=== PATIENT | female | born 1980 | race Caucasian/White ===

== ENCOUNTER 2022-02-01 22:45 | Emergency (ER) | payer OTHER, SELFPAY ==
[2022-02-01 22:47] VITALS: BP 151/101; PULSE 83; RESP 18; TEMP 37.1; O2SAT 97; BMI 27.1
--- NOTE | 2022-02-01 22:57 | HMH.EDGENADL ---
ED Disposition Clinical Impression: Urticaria Allergic reaction Qualifiers: Encounter type: initial encounter Qualified Code(s): T78.40XA - Allergy, unspecified, initial encounter Disposition: Home, Self-Care Condition on Discharge: Good Instructions: DI for Rash, DI for Hives Additional Instructions: You have been evaluated for allergic reaction. Please take daily loratadine. Benadryl as needed. Avoid the supplement that likely caused this reaction. Follow-up with your primary care doctor. Take Bactrim for breast abscess. Follow-up with your surgeon. Return to the emergency department at once for any new or worsening symptoms, difficulty breathing, worsening rash, any other concerns. Prescriptions: Sulfamethoxazole/Trimethoprim [Sulfamethoxazole-Tmp Ds Tablet*] 1 tab PO BID #14 tab Transmission Status: Pending to [facility] Referrals: Provider,Referral, [Primary Care Provider] - Time of Disposition: 23:50 - Critical Care Critical Care Time: No Attestation: On , the high probability of a clinically significant, sudden or life threatening deterioration of the following system(s) required my full and direct attention, intervention and personal management. The time I documented below is in addition to time spent performing reported procedures but includes the following listed in this critical care notation. Medical Decision Making - Medical Records Medical records reviewed: Yes: I reviewed the patient's medical records. - Jayjay Inquiry Pt receiving controlled substance: No Vital Signs: 02/01/22 22:47 Temperature 98.7 F Temperature Source Oral Pulse Rate [Apical] 83 Respiratory Rate 18 Blood Pressure [Right Arm] 151/101 H Blood Pressure Mean [Right Arm] 117 Blood Pressure Source [Right Arm] Automatic Cuff Blood Pressure Position [Right Arm] Sitting 02 Sat by Pulse Oximetry 97 Oxygen Delivery Method Room Air Orders (Tests/Meds): ED MEDICATIONS Generic Name Dose Route Start Last Admin Trade Name Freq PRN Reason Stop Dose Admin Sodium Chloride 8 ml 02/01/22 22:54 Sodium Chloride 0.9% 10ml Vial IV 03/03/22 22:53 NEEDED PRN dilute pepcid Discontinued Medications Generic Name Dose Route Start Last Admin Trade Name Freq PRN Reason Stop Dose Admin Diphenhydramine HCl 25 mg 02/01/22 22:54 02/01/22 22:59 Diphenhydramine 50mg/Ml Vial IV 02/01/22 22:55 25 mg ONCE ONE Administration Famotidine 20 mg 02/01/22 22:54 02/01/22 22:59 Famotidine 20mg/2ml Vial IV 02/01/22 22:55 20 mg ONCE ONE Administration Methylprednisolone Sodium Succinate 125 mg 02/01/22 22:54 02/01/22 22:59 Methylprednisolone Sod Succ 125mg Vial IV 02/01/22 22:55 125 mg ONCE ONE Administration Medical Decision Narrative: In summary this is a previously healthy 41-year-old female presenting to the emergency department with itching skin rash. Patient clinically stable on arrival. Hypertensive. She has obvious skin eruption. No secondary signs of anaphylaxis. Will treat with famotidine, Benadryl, steroids. On reassessment, patient feeling much better. Only site of itching is the IV site in her right antecubital fossa. Rash on chest and abdomen has resolved. No new or concerning features of anaphylaxis like throat swelling, difficulty breathing, shortness of breath, wheezing. Patient counseled to avoid taking this new supplement. Will prescribe Bactrim. Recommended she follow-up with her general surgeon about the breast abscess. There is a 2 cm x 1 cm area of erythema. No fluctuance. Do not believe that it needs incision and drainage, especially not in the emergency department. 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 Given return precautions. Stable for discharge. General Adult HPI - General Stated complaint: Allergic Reaction Time Seen by Provider: 02/01/22 22:53 Mode of Arrival: Ambulatory Source of Information: Patient Limitations: No Limitations - History of
[2022-02-02 00:05] VITALS: BP 151/104; PULSE 74; RESP 16; TEMP 37.1; O2SAT 98
== END 2022-02-02 00:10 | disposition home or self-care (01) ==
PROVIDERS: Emergency Provider Emergency Medicine
DX: L50.9 Urticaria, unspecified (principal); T78.40XA Allergy, unspecified, initial encounter; Z88.0 Allergy status to penicillin; Z88.5 Allergy status to narcotic agent; Z91.048 Other nonmedicinal substance allergy status
CPT/HCPCS: 96374; 96375; 99212; G0463

== ENCOUNTER 2022-02-11 13:49 | Emergency (ER) | payer OTHER, SELFPAY ==
[2022-02-11 14:50] VITALS: BP 133/86; PULSE 73; RESP 20; TEMP 36.8; O2SAT 97; BMI 27.1
[2022-02-11 15:13] VITALS: BP 133/86; PULSE 73; RESP 20; TEMP 36.8; O2SAT 97
--- NOTE | 2022-02-11 15:31 | HMH.EDUTC ---
[facility] [place] Disposition Clinical Impression: Periorbital cellulitis of left eye Disposition: Home, Self-Care Condition on Discharge: Good Instructions: DI for Cellulitis -- Adult Additional Instructions: Take all antibiotics as prescribed until gone. Return to [facility] or ER if condition worsens or fails to improve. Warm compresses to left eye. Prescriptions: clindamycin HCL [Clindamycin HCl] 300 mg PO TID 10 Days #30 cap Transmission Status: Pending to [facility] Lactobacillus Rhamnosus R0011 [Probiotic Digestive Care] 1 each PO DAILY 14 Days #14 cap Transmission Status: Pending to [facility] Referrals: Provider,Referral, [Primary Care Provider] - Time of Disposition: 15:46 Medical Decision Making - Jayjay Inquiry Pt receiving controlled substance: No Vital Signs: 02/11/22 14:50 02/11/22 15:13 Temperature 98.3 F 98.3 F Temperature Source Oral Pulse Rate 73 Pulse Rate [Right Brachial] 73 Respiratory Rate 20 20 Blood Pressure 133/86 Blood Pressure [Right Arm] 133/86 Blood Pressure Mean [Right Arm] 101 Blood Pressure Source [Right Arm] Automatic Cuff Blood Pressure Position [Right Arm] Sitting 02 Sat by Pulse Oximetry 97 Oxygen Delivery Method Room Air [facility] [place] HPI - General Stated complaint: irritated eye Time Seen by Provider: 02/11/22 15:41 Mode of Arrival: Ambulatory Source of Information: Patient Limitations: No Limitations Description of Symptoms (Recalled from Triage Doc. by RN): PATIENT C/O SWELLING, REDNESS, AND PAIN TO LEFT EYE SINCE MONDAY HEENT Symptoms (Recalled from RN notes): Yes Resp Symptoms (Recalled from RN notes): No Skin Symptoms (Recalled from RN notes): No MS Symptoms (Recalled from RN notes): No Functional Status (Recalled from RN notes): WNL - History of Present Illness Provider Complaint: Pain, swelling, redness to left lower eyelid X 3 days. Getting progressively worse. Started after being exposed to her daughter's cat. No fever. Eye is itchy, sore but not truly painful, and has watery discharge. No matting. Onset (ago): day(s) (3) Location: eyes, left Relieving factors: none Exacerbating factors: none Associated symptoms: denies other symptoms Treatments prior to arrival: none - Related Data Previous Rx's Medication Instructions Recorded Lactobacillus Rhamnosus R0011 1 each PO DAILY 14 Days #14 cap 03/18/22 [Probiotic Digestive Care] clindamycin HCL [Clindamycin HCl] 300 mg PO TID 10 Days #30 cap 02/11/22 Allergies Allergy/AdvReac Type Severity Reaction Status Date / Time acetaminophen [From Vicodin] Allergy Verified 02/01/22 23:23 hydrocodone [From Vicodin] Allergy Verified 02/01/22 23:23 latex Allergy Verified 02/01/22 23:23 Penicillins Allergy Verified 02/01/22 23:23 sulfamethoxazole Allergy Verified 02/11/22 15:07 [From Bactrim] trimethoprim [From Bactrim] Allergy Verified 02/11/22 15:07 - Worker's Comp Is this a Worker's Comp case?: No [facility] History - Hepatitis A Screen Drug use history?: No High risk sexual behaviors?: No History of sexually transmitted infection?: No Currently employed?: No Childcare worker?: No Do you have indoor plumbing?: Yes Do you have electricity?: Yes Attestation statement:: This patient has been screened for Hepatitis A risk factors. I have reviewed the patient's past medical history: Yes ROS Obtained: Yes All systems reviewed & no additional complaints - Eyes Eyes: Reports as per HPI, Reports irritation, Reports itchy eyes, Reports eye pain Physical Exam - General General appearance: alert, in no apparent distress - Head Head exam: normocephalic - Eye Eye exam: Present: PERRL, conjunctival injection, discharge, periorbital swelling (left lower eyelid), periorbital tenderness - ENT ENT exam: Present: normal oropharynx, TM's normal bilaterally - Neck Neck exam: Present: normal inspection. Absent: lymphadenopathy - Chest Chest inspection: Present:
== END 2022-02-11 16:03 | disposition home or self-care (01) ==
PROVIDERS: Emergency Provider Emergency Medicine
DX: H05.012 Cellulitis of left orbit (principal); Z88.0 Allergy status to penicillin; Z88.1 Allergy status to other antibiotic agents; Z88.2 Allergy status to sulfonamides; Z88.5 Allergy status to narcotic agent; Z88.6 Allergy status to analgesic agent; Z88.8 Allergy status to other drugs, medicaments and biological substances; Z91.040 Latex allergy status
CPT/HCPCS: 96372; 99213; G0463; J0696

== ENCOUNTER 2022-12-11 16:56 | Emergency (ER) | payer OTHER, SELFPAY ==
[2022-12-11 16:57] VITALS: BP 148/85; PULSE 81; RESP 18; TEMP 36.7; O2SAT 100; BMI 27.8
[2022-12-11 17:10] VITALS: BP 148/85; PULSE 84; O2SAT 100
--- NOTE | 2022-12-11 17:10 | XR_ITS ---
PROCEDURE INFORMATION: Exam: XR Left Shoulder Exam date and time: 12/11/2022 5:08 PM Age: 42 years old Clinical indication: Pain; Shoulder; Left TECHNIQUE: Imaging protocol: Radiologic exam of the Left shoulder. Views: 2 or more views. COMPARISON: No relevant prior studies available. FINDINGS: Bones/joints: No acute fracture or dislocation. Joint spaces preserved. Soft tissues: Normal. IMPRESSION: No acute osseous abnormality.
--- NOTE | 2022-12-11 17:16 | PC.NURSE ---
PT TO XR
--- NOTE | 2022-12-11 17:18 | PC.NURSE ---
calling back from [facility] dr valerio on the phone with them now
[2022-12-11 17:30] VITALS: BP 157/99; PULSE 79; O2SAT 99
--- NOTE | 2022-12-11 17:59 | HMH.EDGENADL ---
Discharge Plan Disposition Patient Disposition: Home, Self-Care Condition: Good Prescriptions Prescriptions: New oxycodone-acetaminophen [Percocet] 5-325 mg tablet 1 tab PO Q6H PRN (Reason: pain) Qty: 6 0RF prednisone 20 mg tablet 20 mg PO BID Qty: 10 0RF No Action clindamycin HCl 300 MG capsule 300 mg PO TID 10 Days Qty: 30 0RF Lactobacillus rhamnosus GG 1 EACH capsule 1 each PO DAILY 14 Days Qty: 14 0RF Referrals Follow up/Referrals: Matthias Hawkins JR, MD [Physician] - See instructions Denise Castellanos DO [Primary Care Provider] - See instructions Activity Restrictions/Add. Instructions Additional Instructions/Restrictions: Sling for 3 to 5 days. Ice 20 minutes 4 times a day. Prednisone as prescribed. Percocet as needed for pain. Follow-up with your primary care provider or with orthopedics, Dr. Hawkins, call for appointment. Additional instructions for CONTROLLED SUBSTANCES: You have been prescribed a medication that is a controlled substance. Controlled substances include pain medications known as opiates and sedative nerve medications known as benzodiazepines. Tramadol, fioricet, and gabapentin are also controlled substances. Some common opiates include: Codeine (such as Tylenol #3) Hydrocodone (Vicodin, Lortab, Lorcet, [place]) Oxycodone (Percocet, Percodan, Oxycodone, Oxy IR) Some common benzodiazepines include: Diazepam (Valium) Lorazepam (Ativan) Alprazolam (Xanax) Clonazepam (Klonopin) Oxazepam (Serax) All of these controlled substances are highly addictive and frequently abused. Misuse can and frequently does lead to addiction as well as overdose and . Medication should be stored in a locked cabinet or other secure storage unit. Do not store the medication in a motor vehicle. Short term supplies, 3 days or less, are prescribed because of the highly addictive nature of the medication. Any of the controlled substance medication NOT taken should be disposed of properly and NOT SAVED. The recommended method of disposing of unused medications is: Place the medicines in a sealable plastic bag. If the medicine is a solid, crush it or add water to dissolve it. Add something undesirable (cat litter, coffee grounds, etc.) Dispose of sealed bag in household trash Do not flush or pour unused medicines down a sink or drain. Controlled substances should not be shared, given away or sold. Because of the addictive nature and frequent abuse, these medications are sometimes stolen. These medications should be kept in a safe place where they cannot be stolen. Do not keep them in your car or purse. Lost or stolen prescriptions for controlled substances WILL NOT BE REFILLED in this emergency department, regardless of whether a police report was filed. Clinical Impressions Clinical Impression: Bursitis and tendinitis of shoulder region Instructions Patient Instructions: How to Use a Sling, DI for Bursitis, DI for Shoulder Tendinopathy Discharge ED Provider: Rico Lima General Adult HPI General Chief complaint: PAIN Stated complaint: PAIN l SHOULDER Time Seen by Provider: 12/11/22 17:50 Mode of Arrival: Ambulatory Limitations: No Limitations Description of Symptoms (Recalled from ER Triage Doc. by RN): PT REPORTS LEFT SHOULDER PAIN UNDER CLAVICLE SINCE MONDAY. PICKED UP GRANDCHILD ON , MOVED HAY ON MONDAY, PAIN HAS INCREASED TODAY ESPECIALLY WITH MOVEMENT. History of Present Illness HPI narrative: Patient states that she awakened with a sore shoulder yesterday morning. She moved some hay yesterday and noticed that it increased the pain. Today the pain is worse and hurts with any movement. The pain is diffuse in her shoulder. No previous shoulder problems. No trauma that she can recall. She has had previous neck problems but says she currently has no pain in her neck and no pain with neck movement. No numbness or weakness. Related D
[2022-12-11 18:00] VITALS: BP 158/106; PULSE 91; O2SAT 97
[2022-12-11 18:35] VITALS: BP 144/95; PULSE 88; RESP 18; TEMP 36.7; O2SAT 98
== END 2022-12-11 18:35 | disposition home or self-care (01) ==
PROVIDERS: Emergency Provider Emergency Medicine; PCP Family Medicine
DX: M75.52 Bursitis of left shoulder (principal); M75.82 Other shoulder lesions, left shoulder; F17.210 Nicotine dependence, cigarettes, uncomplicated; Z98.1 Arthrodesis status; Z98.51 Tubal ligation status
CPT/HCPCS: 73030; 96372; 99284

== ENCOUNTER 2023-08-16 13:12 | Emergency (ER) | payer OTHER, SELFPAY ==
[2023-08-16 13:20] VITALS: BP 142/97; PULSE 73; RESP 18; TEMP 36.6; O2SAT 99; BMI 28.5
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
[2023-08-16 13:48] LABS: UTC Strep Screen (Rapid) Negative (Negative)
[2023-08-16 14:10] VITALS: BP 142/97; PULSE 73; RESP 18; TEMP 36.6; O2SAT 99
== END 2023-08-16 14:10 | disposition home or self-care (01) ==
PROVIDERS: Emergency Provider Nurse Practitioner; PCP Family Medicine
DX: U07.1 COVID-19 (principal); R51.9 Headache, unspecified; F17.210 Nicotine dependence, cigarettes, uncomplicated
CPT/HCPCS: 87635; 87880; 99212; 99214; G0463

== ENCOUNTER 2023-10-26 08:59 | Emergency (ER) | payer BC, SELFPAY ==
[2023-10-26 09:01] VITALS: BP 160/99; PULSE 94; RESP 20; TEMP 36.8; O2SAT 100; BMI 25.7
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
[2023-10-26 09:18] VITALS: BP 136/93; PULSE 74; O2SAT 99
[2023-10-26 10:12] LABS: Basophils # 0.1 K/mm3 (0-0.2); Basophils % 0.9 % (0.1-2.0); Eosinophils # 0.2 K/mm3 (0.0-0.4); Eosinophils % 2.9 % (0.1-12.0); Hematocrit 46.9 % (37.0-47.0); Hemoglobin 15.8 g/dL (12.2-16.2); Lymphocytes % 23.5 % (10-50); Mean Corpuscular HGB Conc 33.7 g/dL (31.8-35.4); Mean Corpuscular Hemoglobin 32.2 pg (27.0-31.2); Mean Corpuscular Volume 95.5 fl (81-99); Mean Platelet Volume 8.2 fl (7.4-10.4); Monocytes # 0.4 K/mm3 (0.1-1.0); Monocytes % 4.5 % (1.7-9.3); Neutrophils # 5.7 K/mm3 (1.8-7.8); Neutrophils % 68.1 % (37.0-80.0); Platelet Count 274 K/mm3 (142-424); Red Blood Count 4.91 M/mm3 (4.20-5.40); Red Cell Distribution Width 13.4 % (11.5-17.5); White Blood Count 8.3 K/mm3 (4.8-10.8)
[2023-10-26 10:22] LABS: Chloride 108 mmol/L (98-107); Sodium 139 mmol/L (136-145)
[2023-10-26 10:23] LABS: Potassium 4.6 mmoL/L (3.5-5.1)
[2023-10-26 10:25] LABS: Alanine Aminotransferase 32 U/L (12-78); Albumin Level 4.7 g/dl (3.5-5.0); Albumin/Globulin Ratio 1.3 (1.1-1.8); Alkaline Phosphatase 70 U/L (38-126); Anion Gap 9.6 mEq/L (5-15); Aspartate Amino Transferase 34 U/L (14-36); Bilirubin,Total 0.4 mg/dl (0.2-1.3); Blood Urea Nitrogen 9 mg/dl (7-17); Calcium 8.9 mg/dl (8.4-10.2); Carbon Dioxide 26 mmol/L (22.0-30.0); Creatinine Clearance Estimated 116 mL/min (50-200); Estimated Glomerular Filt Rate 92 ml/min (>60); GFR (African American) 111 ML/MIN (>60); Globulin 3.7 g/dL (1.3-3.2); Glucose 83 mg/dl (74-100); Lipase 68 U/L (23-300); Total Protein,Serum 8.4 g/dl (6.3-8.2)
[2023-10-26 10:40] LABS: Troponin I < 0.01 ng/ml (0.00-0.034)
[2023-10-26 11:37] VITALS: BP 133/70; PULSE 84; RESP 20; TEMP 36.8; O2SAT 97
== END 2023-10-26 11:38 | disposition home or self-care (01) ==
PROVIDERS: Emergency Provider Student in an Organized Health Care Education/Training Program
DX: S30.1XXA Contusion of abdominal wall, initial encounter (principal); S16.1XXA Strain of muscle, fascia and tendon at neck level, initial encounter; S29.011A Strain of muscle and tendon of front wall of thorax, initial encounter; S29.012A Strain of muscle and tendon of back wall of thorax, initial encounter; S80.02XA Contusion of left knee, initial encounter; V49.40XA Driver injured in collision with unspecified motor vehicles in traffic accident, initial encounter; Y92.410 Unspecified street and highway as the place of occurrence of the external cause
CPT/HCPCS: 70450; 71275; 72125; 72128; 73562; 74174; 80053; 83690; 84484; 85025; 96361; 96374; 99285; Q9967